=== PATIENT | female | born 1990 | race Caucasian/White ===

== ENCOUNTER 2023-02-09 08:23 | Outpatient (CLI) | payer BC, SELFPAY | END 2023-02-09 08:24 | disposition home or self-care (01) | PROVIDERS: PCP Family Medicine; Visit Provider Family Medicine | DX: Z00.00 Encounter for general adult medical examination without abnormal findings (principal); Z13.6 Encounter for screening for cardiovascular disorders; Z79.899 Other long term (current) drug therapy | CPT/HCPCS: 80053; 80061 ==

== ENCOUNTER 2024-05-29 14:49 | Outpatient (CLI) | payer BC, SELFPAY | END 2024-05-29 14:50 | disposition home or self-care (01) | LOC: NFLDREF 06-03 02:35 | PROVIDERS: PCP Family Medicine; Referring Provider Family Medicine; Visit Provider Family Medicine | DX: E78.5 Hyperlipidemia, unspecified (principal); Z13.1 Encounter for screening for diabetes mellitus | CPT/HCPCS: 80061; 82947 ==